=== PATIENT | female | born 1995 | race Hispanic/Latino ===

== ENCOUNTER 2017-08-13 17:33 | Emergency (ER) | payer SELFPAY ==
[~2017-08-13] VITALS: Ht 160 cm; Wt 59.2 kg
[~2017-08-13 17:33] MED LIST: LEVOTHYROXIN100 MC1 PO
[2017-08-13] MEDS ORDERED: AMOXICILLIN500 MG PO (19:04)
[2017-08-13 19:39] VITALS: BP 134/81
== END 2017-08-13 19:39 | disposition home or self-care (01) | DRG 605 ==
LOC: ED 17:33
PROC: 0HQFXZZ Repair Right Hand Skin, External Approach (ICD-10-PCS; principal; 2017-08-13)
PROC: 2W3JX1Z Immobilization of Right Finger using Splint (ICD-10-PCS; 2017-08-13)
DX: S61.216A Laceration without foreign body of right little finger without damage to nail, initial encounter (principal); W26.8XXA Contact with other sharp object(s), not elsewhere classified, initial encounter; Y92.009 Unspecified place in unspecified non-institutional (private) residence as the place of occurrence of the external cause

== ENCOUNTER 2017-08-14 18:27 | Emergency (ER) | payer SELFPAY ==
[~2017-08-14] VITALS: Ht 160 cm; Wt 57.0 kg
[~2017-08-14 18:27] MED LIST changes: +AMOXICILLIN500 MG PO
[2017-08-14 19:30] VITALS: BP 114/74
== END 2017-08-14 19:50 | disposition home or self-care (01) | DRG 950 ==
LOC: ED 18:27
DX: S61.216D Laceration without foreign body of right little finger without damage to nail, subsequent encounter (principal)

== ENCOUNTER 2022-01-05 18:37 | Emergency (ER) | payer OTHER ==
[~2022-01-05] VITALS: Ht 160 cm; Wt 67.0 kg
[2022-01-05 19:40] VITALS: BP 124/78
[2022-01-05 20:15] LABS: HEMATOCRIT 34.3 % (37.0-47.0); IMMATURE GRANULOCYTES 0.3 % (0.0-5.0); MEAN CORPUSCULAR HGB 28.8 pG CALC (26.0-32.0); MEAN CORPUSCULAR HGB CONC 32.1 g/dL CAL (32.0-36.0); RED BLOOD COUNT 3.82 mill/uL (4.20-5.60); RED CELL DISTRI WIDTH 14.2 % (11.5-15.5)
[2022-01-05 20:17] LABS: MEAN CELL VOLUME 89.8 fL CALC (80.0-100.0)
[2022-01-05 20:36] LABS: ANION GAP 10 (6-22 (CALC)); BUN 22 mg/dL (7-17); BUN/CREATININE RATIO 32 (12-20 (CALC)); CARBON DIOXIDE 27 mmol/l (22-30); CHLORIDE 104 mmol/l (95-108); CREATININE 0.7 mg/dL (0.5-1.0); GFR > 60 ML/MIN (>=60 (CALC)); GFR FOR AFR.AMER. > 60 ML/MIN (>=60 (CALC)); POTASSIUM 3.8 mmol/l (3.5-5.1); SODIUM 137 mmol/l (137-146)
== END 2022-01-05 22:40 | disposition home or self-care (01) | DRG 123 ==
LOC: ED 18:37
PROVIDERS: Nurse Practitioner
DX: H49.22 Sixth [abducent] nerve palsy, left eye (principal); H53.2 Diplopia; H50.9 Unspecified strabismus; E03.9 Hypothyroidism, unspecified; Z98.890 Other specified postprocedural states
CPT/HCPCS: Q9967